=== PATIENT | female | born 1955 | race Caucasian/White ===

== ENCOUNTER → 2020-05-22 12:25 | Outpatient (CLI) | payer OTHER, SELFPAY ==
--- NOTE | ~2020-05-22 | MM_ITS ---
EXAMINATION: MM screening gideon BI w yolie HISTORY: Screening mammogram TECHNIQUE: Craniocaudal and mediolateral oblique 3-D tomosynthesis images were obtained and synthetic 2-D images were generated. CAD analysis was submitted and interpreted. COMPARISON: 04/10/2019, 02/14/2018, 12/17/2016 bilateral digital screening mammogram examinations BREAST PARENCHYMAL COMPOSITION: There are scattered areas of fibroglandular density. FINDINGS: There is no evidence of suspicious mass, calcification, or architectural distortion to sugg est malignancy in either breast. There has been no suspicious interval change. IMPRESSION: 1. No mammographic evidence of malignancy. 2. Recommend routine screening mammography in one year. BI-RADS Category 1: Negative Reviewed, dictated and finalized at location A. LE PACKER
== END ==
PROVIDERS: PCP Family Medicine; Visit Provider Obstetrics & Gynecology
DX: Z12.31 Encounter for screening mammogram for malignant neoplasm of breast (principal)
CPT/HCPCS: 77063; 77067

== ENCOUNTER 2020-06-28 17:41 | Outpatient (CLI) | payer OTHER, SELFPAY | END 2020-06-28 17:42 | disposition home or self-care (01) | LOC: ANHCOVIDVC 17:41 | PROVIDERS: PCP Family Medicine | DX: Z23 Encounter for immunization (principal) | CPT/HCPCS: 0001A; 91300 ==

== ENCOUNTER 2020-07-19 17:42 | Outpatient (CLI) | payer OTHER, SELFPAY | END 2020-07-19 17:43 | disposition home or self-care (01) | LOC: ANHCOVIDVC 17:42 | PROVIDERS: PCP Family Medicine | DX: Z23 Encounter for immunization (principal) | CPT/HCPCS: 0002A; 91300 ==

== ENCOUNTER 2021-06-20 02:11 | Day surgery (SDC) | payer OTHER, SELFPAY ==
[2021-06-09 09:35] VITALS: BMI 24.9
--- NOTE | 2021-06-19 13:26 | WPDANESEPP ---
Anes - Eval Pre Procedure Procedure: Operation Date: 06/20/21 08:00 Proposed Procedures p Screening Colonoscopy - Phuc Kramer MD Date/Time: 06/19/21 13:26 Pre Op Diagnosis: neoplasm screening Patient Data Age: 66 Gender: F Height: 1.65 m Weight: 68 kg Allergies Allergy/AdvReac Type Severity Reaction Status Date / Time No Known Drug Allergies Allergy Unknown unknown Verified 06/09/21 09:32 Home Medications Medication Instructions Recorded Confirmed Type Ca 600 mg-D3 20 mcg-mag oxide 50 tablet PO 02/21/19 03/19/20 History jp-Ym-siudyk-manganese-boron tablet multivit with 1 tablet PO DAILY 02/21/19 03/19/20 History cbekcqdy-jnba-CE-lutein 8 mg iron-400 mcg-300 mcg tablet vit C,E,zinc,copper-lnine9l 250 1 cap PO DAILY 02/21/19 03/19/20 History mg-lutein 5 mg-zeaxanthin 1 mg capsule apple cider vinegar 300 mg tablet mg PO 03/25/21 History aspirin 81 mg tablet,delayed 81 mg PO DAILY 03/25/21 History release cinnamon bark 500 mg capsule 500 mg PO DAILY 03/25/21 History nuriva .ROUTE 03/25/21 History Patient hx anesthesia problems: none Family hx anesthesia problems: none Results Review: All pre-operative results and documents have been reviewed as part of the pre-operative evaluation. [facility] Past Medical History Medical History (Updated 06/19/21 @ 13:26 by Pradip Brumfield DO) Anxiety H/O vaginal delivery Rheumatic fever Screening breast examination Surgical History Surgical History History of bilateral tubal ligation History of breast surgery Previous section Family History Family History Father Family history of lung cancer Patient's father is Other Diabetes mellitus Family history of development disorder Family history of malignant neoplasm of breast No family history of cardiovascular disease No family history of hypertension No family history of malignant neoplasm Social History Social History Smoking status: Never smoker Second hand tobacco smoke exposure: No Alcohol intake: current Alcohol use details: rarely Substance use: never Substance use type: does not use Spiritual care concerns: No Exam Day of Procedure 06/19/21 13:26
[2021-06-20] MEDS: LACTATED RINGERS 1,000 ML 150 ML IV CONT (08:25)
[2021-06-20 08:34] VITALS: BP 130/75; PULSE 72; RESP 18; TEMP 36.4; O2SAT 97; BMI 25.3
--- NOTE | 2021-06-20 08:34 | WPDANESEFPP ---
Anes - Eval Final PreProcedure Day of Procedure 06/20/21 08:34 Patient weight: normal Heart: regular rate and rhythm Lungs: clear to auscultation Airway: Mallampati scale Neurological: alert and oriented Last oral intake: >/= 8 hours ASA classification: II Emergent: no Anesthetic plan: proceed Anesthesia type and monitoring: general GIVS and standard monitoring Results Review: All pre-operative results and documents have been reviewed as part of the pre-operative evaluation. Informed Consent: The patient's anesthetic plan and its attendant risks and benefits were discussed with the patient/family/POA. Questions were solicited and answers provided to the satisfaction of the patient/family/POA.
--- NOTE | 2021-06-20 08:36 | PM.HPGS ---
History of Present Illness History of Present Illness Consent: Risks, benefits, and alternatives have been discussed and questions answered. Patient agrees to proceed with procedure. Chief complaint: neoplasm screening Narrative: Yessy Waddell is a 66 year old female here for screening colonoscopy, last one 2009. Earlier today she had vasovagal episode with syncope due to dehydration and treated in ER, now she is ok Review of Systems Constitutional: Constitutional: Denies headache(s) and Denies weakness Eyes: Eyes: Denies blurry vision ENT: Reports Normal hearing present, Denies headache(s) and Denies neck pain Cardiovascular: Cardiovascular: Denies chest pain and Denies dyspnea Respiratory: Respiratory: Denies dyspnea Gastrointestinal: Gastrointestinal: Reports no additional gastrointestinal complaints Genitourinary: Genitourinary: Denies dysuria Musculoskeletal: Musculoskeletal: Denies neck pain Integumentary/Breasts: Skin/Breast: Denies dry skin Neurologic: Reports Normal hearing present, Denies headache(s) and Denies weakness Psychiatric: Psychiatric: Denies anxiety Endocrine: Endocrine: Denies change in body appearance Hematologic/Lymphatic: Hematologic/Lymphatic: Denies easy bleeding Allergic/Immunologic: Allergic/Immunologic: Denies urticaria PMFSH Past Medical History Medical History (Updated 06/20/21 @ 08:37 by Phuc Kramer MD) Anxiety Colon cancer screening H/O vaginal delivery Rheumatic fever Screening breast examination Surgical History Surgical History History of bilateral tubal ligation History of breast surgery Previous section Family History Family History Father Family history of lung cancer Patient's father is Other Diabetes mellitus Family history of development disorder Family history of malignant neoplasm of breast No family history of cardiovascular disease No family history of hypertension No family history of malignant neoplasm Social History Social History Smoking status: Never smoker Second hand tobacco smoke exposure: No Alcohol intake: current Alcohol use details: rarely Substance use: never Substance use type: does not use Spiritual care concerns: No Meds Home Medications and Allergies Home Medications Medication Instructions Recorded Confirmed Type Ca 600 mg-D3 20 mcg-mag oxide 50 tablet PO 02/21/19 03/19/20 History yq-Fr-edbhdb-manganese-boron tablet multivit with 1 tablet PO DAILY 02/21/19 03/19/20 History bhobyzyz-muki-XO-lutein 8 mg iron-400 mcg-300 mcg tablet vit C,E,zinc,copper-plekm7e 250 1 cap PO DAILY 02/21/19 03/19/20 History mg-lutein 5 mg-zeaxanthin 1 mg capsule apple cider vinegar 300 mg tablet mg PO 03/25/21 History aspirin 81 mg tablet,delayed 81 mg PO DAILY 03/25/21 History release cinnamon bark 500 mg capsule 500 mg PO DAILY 03/25/21 History nuriva .ROUTE 03/25/21 History Allergies Allergy/AdvReac Type Severity Reaction Status Date / Time No Known Drug Allergies Allergy Unknown unknown Verified 06/20/21 08:26 Exam Const: General: comfortable and no acute distress HENMT: General nose exam: Normal nares present Eyes: General: appearance normal, both eyes and all related structures Neck: Neck: no JVD Resp: Auscultation: clear to auscultation bilaterally Cardio: Rate: regular rate Rhythm: regular rhythm GI: Inspection: non-distended GI Palp: Yes Soft to palpation Skin: General skin exam: normal color Neuro: General: gait normal Speech: normal speech Extrem: General: normal to inspection Psych: Mental Status: mental status grossly normal Assessment and Plan Assessment and plan (1) Colon cancer screening: Code(s): Z12.11 - Encounter for
[2021-06-20 09:50] VITALS: BP 106/75; PULSE 64; RESP 15; O2SAT 98
[2021-06-20 10:00] VITALS: BP 103/72; PULSE 67; RESP 17; O2SAT 100
[2021-06-20 10:10] VITALS: BP 110/78; PULSE 71; RESP 17; O2SAT 95
== END 2021-06-20 10:42 | disposition home or self-care (01) ==
PROVIDERS: PCP Family Medicine; Visit Provider Internal Medicine Gastroenterology
PROC: 0DJD8ZZ Inspection of Lower Intestinal Tract, Via Natural or Artificial Opening Endoscopic (ICD-10-PCS; CPT 45378; principal; 2021-06-20 08:00)
DX: Z12.11 Encounter for screening for malignant neoplasm of colon (principal); D12.0 Benign neoplasm of cecum; D12.3 Benign neoplasm of transverse colon; K63.5 Polyp of colon; K64.8 Other hemorrhoids; K57.30 Diverticulosis of large intestine without perforation or abscess without bleeding; K64.4 Residual hemorrhoidal skin tags; F41.9 Anxiety disorder, unspecified; Z79.82 Long term (current) use of aspirin
CPT/HCPCS: 45385; 45381; 36415; 80048; 85025; 88305; 93005; 96361; 96374; 99284; J2405; J2704; J7030; J7120

== ENCOUNTER 2021-06-20 05:38 | Emergency (ER) | payer OTHER, SELFPAY ==
[2021-06-20] VITALS (12 sets, daily range): BP systolic 103–132; BP diastolic 63–91; PULSE 60–80; RESP 13–18; TEMP 36.2; O2SAT 96–100
--- NOTE | 2021-06-20 05:43 | ECG_ITS ---
Measurements Intervals [place] Rate: 68 P: 51 NH: 144 QRS: 43 QRSD: 101 T: 14 QT: 375 QTc: 401 Interpretive Statements SINUS RHYTHM NONSPECIFIC T-WAVE ABNORMALITY ABNORMAL ECG NO PREVIOUS ECG AVAILABLE FOR COMPARISON Electronically Signed On 06-20-2021 10:33:49 TOP PRECIPITATOR OPERATOR HELPER by Jimi Lynn M.D.
[2021-06-20] MEDS: SODIUM CHLORIDE 0.9% IV 1,000 ML 999 ML IV CONT ×2 (05:55→07:08)
[2021-06-20] MEDS: ONDANSETRON INJ 4 MG/2 ML VIAL IV PUSH (05:55)
[2021-06-20 06:06] LABS: Basophils Percent Auto 0.3 % (0.2-1.2); Eosinophils Absolute Auto 0.4 K/mm3 (0-0.3); Eosinophils Percent Auto 4.1 % (0-4.4); Hematocrit 39.5 % (37.0-47.0); Hemoglobin 13.4 g/dL (12.0-15.0); Immature Granulocyte Absolute 0.04 K/mm3 (0.00-0.031); Immature Granulocyte Percent A 0.5 % (0-0.5); Lymphocytes Absolute Auto 2.68 K/mm3 (0.9-3.2); Lymphocytes Percent Auto 30.6 % (18.3-44.2); Mean Corpuscular HGB Conc 33.9 g/dl (32-36); Mean Corpuscular Hemoglobin 29.4 pg (26-34); Mean Corpuscular Volume 86.6 fl (80-100); Mean Platelet Volume 8.5 fl (7.4-10.4); Monocytes Absolute Auto 0.4 K/mm3 (0.1-0.6); Monocytes Percent Auto 4.7 % (2.6-8.5); Neutrophils Absolute Auto 5.3 K/mm3 (1.3-6.7); Neutrophils Percent Auto 59.8 % (45.5-73.1); Platelet Count Result 276 k/mm3 (150-375); Red Blood Count 4.56 M/mm3 (4.2-5.4); Red Cell Distribution Width 12.9 % (11.5-14.5); White Blood Count 8.8 K/mm3 (4.5-10.0)
[2021-06-20 06:15] LABS: Anion Gap 9 mmol/L (8-16); Blood Urea Nitrogen 8 mg/dL (7-17); Calcium 9.2 mg/dL (8.4-10.2); Carbon Dioxide 23 mmol/L (22-30); Chloride 103 mmol/L (98-107); Estimated CRCL calculation 56 ml/min; Estimated Glomerular Filt Rate > 60; Glucose 175 mg/dL (65-110); Potassium 3.6 mmol/L (3.4-5.0); Sodium 135 mmol/L (137-145)
--- NOTE | 2021-06-20 06:37 | ED.SYNCOPE ---
HPI - Syncope General Chief Complaint: Syncope <Bob Antonio MD - Last Filed: 06/20/21 07:09> Stated Complaint: syncope <Bob Antonio MD - Last Filed: 06/20/21 07:09> Time Seen by Provider: 06/20/21 05:47 <Bob Antonio MD - Last Filed: 06/20/21 07:09> History of Present Illness HPI narrative: Patient is a 66-year-old female who presents ER with syncope. Patient took some magnesium citrate at midnight. She is scheduled to have a colonoscopy today with GI. Apparently after taking the laxative patient started having vomiting and diarrhea and they are occurring at the same time. She was sitting on the toilet when her heard her hit her head on the wall. Patient had been sitting on the toilet flopped backwards hitting her head. Patient has no headache at this time. She still feels quite nauseous and lightheaded with movements. She takes no blood thinners. No discernible injury to the head. Denies blood in vomit or stool. <Bob Antonio MD - Last Filed: 06/20/21 07:09> Related Data Home Medications: Home Medications Medication Instructions Recorded Confirmed Ca 600 mg-D3 20 mcg-mag oxide 50 tablet PO 02/21/19 03/19/20 ov-Hi-mvtwlb-manganese-boron tablet multivit with 1 tablet PO DAILY 02/21/19 03/19/20 nywvuxtl-lunm-BB-lutein 8 mg iron-400 mcg-300 mcg tablet vit C,E,zinc,copper-jjdes5s 250 1 cap PO DAILY 02/21/19 03/19/20 mg-lutein 5 mg-zeaxanthin 1 mg capsule apple cider vinegar 300 mg tablet mg PO 03/25/21 aspirin 81 mg tablet,delayed 81 mg PO DAILY 03/25/21 release cinnamon bark 500 mg capsule 500 mg PO DAILY 03/25/21 nuriva .ROUTE 03/25/21 <Bob Antonio MD - Last Filed: 06/20/21 07:09> Allergies/Adverse Reactions: Allergies Allergy/AdvReac Type Severity Reaction Status Date / Time No Known Drug Allergies Allergy Unknown unknown Verified 06/20/21 08:26 <Bob Antonio MD - Last Filed: 06/20/21 07:09> Review of Systems Review of Systems: All systems reviewed & are unremarkable except as noted in HPI and below <Bob Antonio MD - Last Filed: 06/20/21 07:09> Constitutional: Constitutional: Denies chills, Denies fever(s) and Denies weakness <Bob Antonio MD - Last Filed: 06/20/21 07:09> ENT: Denies nasal congestion and Denies sore throat <Bob Antonio MD - Last Filed: 06/20/21 07:09> Cardiovascular: Cardiovascular: Denies chest pain, Denies rapid heart rate and Denies radiating jaw, neck or arm pain <Bob Antonio MD - Last Filed: 06/20/21 07:09> Respiratory: Respiratory: Denies cough and Denies dyspnea <Bob Antonio MD - Last Filed: 06/20/21 07:09> Gastrointestinal: Gastrointestinal: Denies abdominal pain, Reports diarrhea, Reports nausea and Reports vomiting <Bob Antonio MD - Last Filed: 06/20/21 07:09> Neurologic: Reports syncope, Denies focal weakness and Denies numbness <Bob Antonio MD - Last Filed: 06/20/21 07:09> PMF Past Medical History Medical History: Medical History (Updated 06/20/21 @ 08:37 by Phuc Kramer MD) Anxiety Colon cancer screening H/O vaginal delivery Rheumatic fever Screening breast examination <Bob Antonio MD - Last Filed: 06/20/21 07:09> Surgical History Surgical History: Surgical History History of bilateral tubal ligation History of breast surgery Previous section <Bob Antonio MD - Last Filed: 06/20/21 07:09> Family History Family History: Family History Father Family history of lung cancer Patient's father is Other Diabetes mellitus Family history of development disorder Family history of malignant neoplasm of breast No family history of cardiovascular disease No family history of hypertension No family history of malignant neoplasm <A
--- NOTE | 2021-06-20 07:06 | PC.NURSE ---
Per EDP at bedside, pt is still orthostatic - pt denies any dizziness w/ drop in pressure. EDP Dr Antonio discussed POC w/ pt - ordered another L of NS/fluids prior to ED exit. Following fluids admin, pt is to go directly to OR for scheduled colonoscopy. Pt agrees w/ plan.
--- NOTE | 2021-06-20 08:15 | PC.NURSE ---
pt ambulatory to bathroom. denies dizziness. c/o some weakness. pt to go to gi lab as originally scheduled.
== END 2021-06-20 08:32 | disposition home or self-care (01) ==
PROVIDERS: Emergency Provider Emergency Medicine; PCP Family Medicine
DX: R55 Syncope and collapse (principal); Z79.82 Long term (current) use of aspirin; R94.31 Abnormal electrocardiogram [ECG] [EKG]
CPT/HCPCS: 36415; 80048; 85025; 93005; 96361; 96374; 99284; J2405; J7030

== ENCOUNTER → 2021-06-24 17:23 | Outpatient (CLI) | payer OTHER, SELFPAY ==
--- NOTE | ~2021-06-24 | MM_ITS ---
EXAMINATION: MM screening gideon BI w yolie HISTORY: Screening TECHNIQUE: Craniocaudal and mediolateral oblique 3-D tomosynthesis images were obtained and synthetic 2-D images were generated. CAD analysis was submitted and interpreted. COMPARISON: Comparison to multiple prior studies sequentially, with oldest reviewed study dated 08/2015. BREAST PARENCHYMAL COMPOSITION: There are scattered areas of fibroglandular density. FINDINGS: There is no evidence of suspicious mass, calcification, or architectural distortion to sugg est malignancy in either breast. There has been no suspicious interval change. IMPRESSION: 1. No mammographic evidence of malignancy. 2. Recommend routine screening mammography in one year. BI-RADS Category 1: Negative Reviewed, dictated and finalized at location A. CLERK
--- NOTE | ~2021-06-24 | DEXA_ITS ---
Bone Density Report Name: SHELDON PASCAL Age: 66 Sex: Female Ethnicity: White Date of : 1955 Indication: osteopenia; parental hip fracture; postmenopausal Referring Provider: KATARINA JACKMAN Study: Bone densitometry was performed. Exam Date: June 24, 2021 Accession number: [id number] Bone Density: Region BMD T-score Z-score Classification AP Spine (L1-L4) 0.867 -1.6 0.1 Osteopenia Femoral Neck (Left) 0.566 -2.5 -1.1 Osteoporosis Total Hip (Left) 0.796 -1.2 0.0 Osteopenia Femoral Neck (Right) 0.627 -2.0 -0.5 Osteopenia Total Hip (Right) 0.847 -0.8 0.4 Normal Total Hip Mean 0.822 -1.0 0.2 Normal World Health Organization criteria for BMD impression classify patients as: Normal (T-score at or above -1.0), Osteopenia (T-score between -1.0 and -2.5), or Osteoporosis (T-score at or below -2.5). 10-year Fracture Risk: FRAX not reported because: Some T-score for Spine Total or Hip Total or Femoral Neck at or below -2.5 Previous Exams: Region Exam Age BMD T-score BMD Change BMD Change Date g/cm2 vs Baseline vs Previous AP Spine(L1-L4) 06/24/2021 66 0.867 -1.6 -0.060* -0.003 04/10/2019 63 0.870 -1.6 -0.057* -0.035 09/07/2014 59 0.905 -1.3 -0.022 0.020 04/14/2012 56 0.885 -1.5 -0.042* -0.024* 03/28/2010 54 0.909 -1.3 -0.018 -0.018 03/30/2008 52 0.927 -1.1 Total Hip(Left) 06/24/2021 66 0.796 -1.2 -0.023 0.015 04/10/2019 63 0.781 -1.3 -0.038* -0.053 09/07/2014 59 0.834 -0.9 0.015 0.015 04/14/2012 56 0.819 -1.0 -0.001 -0.027 03/28/2010 54 0.846 -0.8 0.026 0.026 03/30/2008 52 0.819 -1.0 Total Hip(Right) 06/24/2021 66 0.847 -0.8 -0.030* -0.006 04/10/2019 63 0.852 -0.7 -0.025 -0.052 09/07/2014 59 0.905 -0.3 0.028 0.030 04/14/2012 56 0.875 -0.6 -0.003 -0.004 03/28/2010 54 0.879 -0.5 0.002 0.002 03/30/2008 52 0.877 -0.5 *Denotes significance at 95% confidence level, LSC for AP Spine = 0.022 g/cm2, LSC for Total Hip = 0.027 g/cm2 Clinical Information Provided by Patient: Parent has had a hip fracture Has used the following medications: Vitamin D, Calcium, MULT VIT Patient maximum height was 65.0 Menopause Age: 52 No regular weight bearing exercise Does not reg
== END ==
PROVIDERS: PCP Obstetrics & Gynecology; Visit Provider Obstetrics & Gynecology
DX: Z12.31 Encounter for screening mammogram for malignant neoplasm of breast (principal); Z78.0 Asymptomatic menopausal state; M85.89 Other specified disorders of bone density and structure, multiple sites; M81.0 Age-related osteoporosis without current pathological fracture
CPT/HCPCS: 77063; 77067; 77080

== ENCOUNTER 2022-05-13 12:32 | Outpatient (CLI) | payer OTHER, SELFPAY ==
[2022-05-13 18:47] LABS: Kit Draw Collected
== END 2022-05-13 12:33 | disposition home or self-care (01) ==
LOC: ANHGOSHLAB 12:33
PROVIDERS: PCP Family Medicine; Visit Provider Family Medicine
DX: M81.0 Age-related osteoporosis without current pathological fracture (principal); Z78.0 Asymptomatic menopausal state
CPT/HCPCS: 36415

== ENCOUNTER → 2022-09-12 09:31 | Outpatient (CLI) | payer OTHER, SELFPAY ==
--- NOTE | ~2022-09-12 | MM_ITS ---
EXAMINATION: MM screening gideon BI w yolie HISTORY: Screening mammogram TECHNIQUE: Craniocaudal and mediolateral oblique 3-D tomosynthesis images were obtained and synthetic 2-D images were generated. CAD analysis was submitted and interpreted. COMPARISON: 06/24/2021, 05/22/2020, 04/10/2019 BREAST PARENCHYMAL COMPOSITION:There are scattered areas of fibroglandular density. FINDINGS: No suspicious mass, calcification, or architectural distortion are identified in either fabby ast to suggest malignancy. There has been no suspicious interval change. IMPRESSION: No mammographic evidence of malignancy. Recommend routine screening mammography in one year. BI-RADS Category 1: Negative Reviewed, dictated and finalized at location .
== END ==
PROVIDERS: PCP Family Medicine; Visit Provider Obstetrics & Gynecology
DX: Z12.31 Encounter for screening mammogram for malignant neoplasm of breast (principal)
CPT/HCPCS: 77063; 77067

== ENCOUNTER 2022-10-26 06:13 | Day surgery (SDC) | payer OTHER, SELFPAY ==
[2022-10-07 07:23] VITALS: BMI 24.9
--- NOTE | 2022-10-23 12:46 | WPDANESEPPF ---
Anes - Initial Pre Proc Eval Procedure: Operation Date: 10/26/22 08:00 Proposed Procedures p Screening Colonoscopy - Phuc Kramer MD Date/Time: 10/23/22 12:46 Surgeon: Phuc Kramer MD Pre Op Diagnosis: History of Colon Polyps Patient Data Age: 67 Gender: F Height: 1.65 m Weight: 68 kg Allergies Allergy/AdvReac Type Severity Reaction Status Date / Time No Known Drug Allergies Allergy Unknown unknown Verified 10/26/22 06:35 Home Medications Medication Instructions Recorded Confirmed Type Ca 600 mg-D3 20 mcg-mag oxide 50 1,200 tablet PO DAILY 02/21/19 10/26/22 History kh-Ia-offrgk-manganese-boron tablet (Calcium 600-D3 Plus (mag-zinc)) multivit with 1 tablet PO DAILY 02/21/19 10/26/22 History fpbupbom-ivpf-SH-lutein 8 mg iron-400 mcg-300 mcg tablet (Centrum Silver Women) vit C,E,zinc,copper-citvq8l 250 1 cap PO DAILY 02/21/19 10/26/22 History mg-lutein 5 mg-zeaxanthin 1 mg capsule (Ocuvite Adult 50 Plus) apple cider vinegar 300 mg tablet 450 mg PO DAILY 03/25/21 10/26/22 History cinnamon bark 500 mg capsule 2,000 mg PO DAILY 03/25/21 10/26/22 History (Cinnamon) B6 0.85 mg-folic 200 1 tablet PO DAILY 10/06/22 10/26/22 History vys-S00-vixibcH18-zjlfhj-ghdccvvncjsl oral chewable tablet (Neuriva Plus) Patient hx anesthesia problems: none Family hx anesthesia problems: none Results Review: All pre-operative results and documents have been reviewed as part of the pre-operative evaluation. [facility] Past Medical History Medical History Anxiety Colon cancer screening H/O vaginal delivery Rheumatic fever Screening breast examination Surgical History Surgical History History of bilateral tubal ligation History of breast surgery Previous section Family History Family History Father Family history of lung cancer Patient's father is Other Diabetes mellitus Family history of development disorder Family history of malignant neoplasm of breast No family history of cardiovascular disease No family history of hypertension No family history of malignant neoplasm Social History Social History (Updated 05/13/22 @ 11:23 by Deidra Munguia MA) Smoking status: Never smoker Second hand tobacco smoke exposure: No Alcohol intake: never Alcohol use details: rarely Substance use: never Substance use type: does not use Lack of Transportation: No Lack of Food: Never True Current Housing: I Have Housing Concerned About Future Housing: No Difficulty Paying Gas/Electric Bills: No Difficulty Paying for Meds: No Currently Unemployed: No Education: High School Diploma/GED Difficulty w/ Childcare or Family Care: No Living arrangements: with family Spiritual care concerns: No Anes - Eval Final PreProcedure Day of Procedure 10/23/22 12:46 Patient weight: normal Heart: regular rate and rhythm Lungs: clear to auscultation and normal air movement Airway: Mallampati scale class II Neurological: alert and oriented Last oral intake: >/= 8 hours ASA classification: II Emergent: no Anesthetic plan: proceed Anesthesia type and monitoring: general GIVS and standard monitoring Results Review: All pre-operative results and documents have been reviewed as part of the pre-operative evaluation. Informed Consent: The patient's anesthetic plan and its attendant risks and benefits were discussed with the patient/family/POA. Questions were solicited and answers provided to the satisfaction of the patient/family/POA.
[2022-10-26 06:41] VITALS: BP 157/91; PULSE 79; RESP 18; TEMP 36.5; O2SAT 98
[2022-10-26] MEDS: LACTATED RINGERS 1,000 ML 150 ML IV CONT (06:49)
--- NOTE | 2022-10-26 08:01 | PM.HPGS ---
History of Present Illness History of Present Illness Consent: Risks, benefits, and alternatives have been discussed and questions answered. Patient agrees to proceed with procedure. Chief complaint: History of Colon Polyps Narrative: Yessy Waddell is a 67 year old female with large polyps removed 1 year ago Review of Systems Constitutional: Constitutional: Denies headache(s) and Denies weakness Eyes: Eyes: Denies blurry vision ENT: Reports Normal hearing present, Denies headache(s) and Denies neck pain Cardiovascular: Cardiovascular: Denies chest pain and Denies dyspnea Respiratory: Respiratory: Denies dyspnea Gastrointestinal: Gastrointestinal: Reports no additional gastrointestinal complaints Genitourinary: Genitourinary: Denies dysuria Musculoskeletal: Musculoskeletal: Denies neck pain Integumentary/Breasts: Skin/Breast: Denies dry skin Neurologic: Reports Normal hearing present, Denies headache(s) and Denies weakness Psychiatric: Psychiatric: Denies anxiety Endocrine: Endocrine: Denies change in body appearance Hematologic/Lymphatic: Hematologic/Lymphatic: Denies easy bleeding Allergic/Immunologic: Allergic/Immunologic: Denies urticaria PMFSH Past Medical History Medical History Anxiety Colon cancer screening H/O vaginal delivery Rheumatic fever Screening breast examination Surgical History Surgical History History of bilateral tubal ligation History of breast surgery Previous section Family History Family History Father Family history of lung cancer Patient's father is Other Diabetes mellitus Family history of development disorder Family history of malignant neoplasm of breast No family history of cardiovascular disease No family history of hypertension No family history of malignant neoplasm Social History Social History (Updated 05/13/22 @ 11:23 by Deidra Munguia MA) Smoking status: Never smoker Second hand tobacco smoke exposure: No Alcohol intake: never Alcohol use details: rarely Substance use: never Substance use type: does not use Lack of Transportation: No Lack of Food: Never True Current Housing: I Have Housing Concerned About Future Housing: No Difficulty Paying Gas/Electric Bills: No Difficulty Paying for Meds: No Currently Unemployed: No Education: High School Diploma/GED Difficulty w/ Childcare or Family Care: No Living arrangements: with family Spiritual care concerns: No Meds Home Medications and Allergies Home Medications Medication Instructions Recorded Confirmed Type Ca 600 mg-D3 20 mcg-mag oxide 50 1,200 tablet PO DAILY 02/21/19 10/26/22 History gl-Gf-kibnqd-manganese-boron tablet (Calcium 600-D3 Plus (mag-zinc)) multivit with 1 tablet PO DAILY 02/21/19 10/26/22 History dysuljln-axci-II-lutein 8 mg iron-400 mcg-300 mcg tablet (Centrum Silver Women) vit C,E,zinc,copper-dhnjp2n 250 1 cap PO DAILY 02/21/19 10/26/22 History mg-lutein 5 mg-zeaxanthin 1 mg capsule (Ocuvite Adult 50 Plus) apple cider vinegar 300 mg tablet 450 mg PO DAILY 03/25/21 10/26/22 History cinnamon bark 500 mg capsule 2,000 mg PO DAILY 03/25/21 10/26/22 History (Cinnamon) B6 0.85 mg-folic 200 1 tablet PO DAILY 10/06/22 10/26/22 History mno-H85-nyrozbE99-svxsms-idjfrswvnfyc oral chewable tablet (Neuriva Plus) Allergies Allergy/AdvReac Type Severity Reaction Status Date / Time No Known Drug Allergies Allergy Unknown unknown Verified 10/26/22 06:35 Vital Signs Vital Signs - 24 hr 10/26/22 06:41 Temperature 97.7 F Pulse Rate 79 Respiratory Rate 18 Blood Pressure 157/91 H Pulse Oximetry 98 Oxygen Delivery Room Air Exam Const: General: comfortable and no acute distress HENMT: Face/Nos
[2022-10-26 08:27] VITALS: BP 101/70; PULSE 65; RESP 16; O2SAT 100
[2022-10-26 08:37] VITALS: BP 123/85; PULSE 62; RESP 16; O2SAT 100
[2022-10-26 08:47] VITALS: BP 125/81; PULSE 59; RESP 16; O2SAT 100
--- NOTE | 2022-10-26 11:11 | WPDANESPN ---
Anes - Prog Note Post-Op Date/Time: 10/26/22 11:11 Cardiovascular status: normal Respiratory status: normal Airway patency: baseline Mental status: baseline Post-Op hydration status: normal Vital Signs: Last Vital Signs Temp 36.5 C 10/26/22 06:41 Pulse 59 L 10/26/22 08:47 Resp 16 10/26/22 08:47 BP 125/81 10/26/22 08:47 Pulse Ox 100 10/26/22 08:47 O2 Del Method Room Air 10/26/22 08:47 Pain Score (VAS): 0 I/O: Intake & Output 10/25/22 10/26/22 10/26/22 23:59 07:59 15:59 Intake Total 900 Balance 900 Post-procedural complaints: none Patient Feedback: Patient satisfied with anesthetic care. Other Findings: Patient vital signs back to baseline. Patient denies nausea and vomiting. Patient's pain under control. Patient OK for discharge.
== END 2022-10-26 09:00 | disposition home or self-care (01) ==
PROVIDERS: PCP Family Medicine; Visit Provider Internal Medicine Gastroenterology
PROC: 0DJD8ZZ Inspection of Lower Intestinal Tract, Via Natural or Artificial Opening Endoscopic (ICD-10-PCS; CPT 45378; principal; 2022-10-26 08:00)
DX: Z86.010 Personal history of colon polyps (principal)
CPT/HCPCS: 45385

== ENCOUNTER 2022-10-26 09:00 | Outpatient (NON) | payer OTHER, SELFPAY | END 2022-10-26 09:01 | disposition home or self-care (01) | LOC: ANHLAB 10-27 08:39 | PROVIDERS: PCP Family Medicine; Visit Provider Internal Medicine Gastroenterology | DX: D12.0 Benign neoplasm of cecum (principal) | CPT/HCPCS: 88305 ==

== ENCOUNTER 2022-11-03 11:11 | Outpatient (CLI) | payer OTHER, SELFPAY ==
[2022-11-03 20:27] LABS: Basophils Percent Auto 0.7 % (0.2-1.2); Eosinophils Absolute Auto 0.1 K/mm3 (0-0.3); Eosinophils Percent Auto 2.4 % (0-4.4); Hemoglobin 13.3 g/dL (12.0-15.0); Immature Granulocyte Absolute 0.01 K/mm3 (0.00-0.031); Immature Granulocyte Percent A 0.2 % (0-0.5); Lymphocytes Absolute Auto 1.91 K/mm3 (0.9-3.2); Lymphocytes Percent Auto 33.1 % (18.3-44.2); Mean Corpuscular HGB Conc 32.4 g/dl (32-36); Mean Corpuscular Hemoglobin 28.7 pg (26-34); Mean Corpuscular Volume 88.6 fl (80-100); Mean Platelet Volume 9.2 fl (7.4-10.4); Monocytes Absolute Auto 0.4 K/mm3 (0.1-0.6); Monocytes Percent Auto 6.2 % (2.6-8.5); Neutrophils Absolute Auto 3.3 K/mm3 (1.3-6.7); Neutrophils Percent Auto 57.4 % (45.5-73.1); Platelet Count Result 265 k/mm3 (150-375); Red Blood Count 4.63 M/mm3 (4.2-5.4); Red Cell Distribution Width 12.8 % (11.5-14.5); White Blood Count 5.8 K/mm3 (4.5-10.0)
[2022-11-03 21:01] LABS: Hepatitis C Virus Antibody Negative (Negative)
[2022-11-03 21:18] LABS: Alanine Aminotransferase 22 U/L (6-35); Albumin Level 4.4 g/dL (3.5-5.1); Alkaline Phosphatase 53 U/L (38-126); Anion Gap 5 mmol/L (8-16); Aspartate Amino Transferase 34 U/L (14-36); Bilirubin,Total 0.6 mg/dL (0.2-1.3); Blood Urea Nitrogen 13 mg/dL (7-17); Calcium 9.4 mg/dL (8.4-10.2); Carbon Dioxide 31 mmol/L (22-30); Chloride 103 mmol/L (98-107); Cholesterol 265 mg/dL (0-200); Estimated Glomerular Filt Rate > 60; Glucose 93 mg/dL (65-110); HDL Direct 58 mg/dL; Sodium 139 mmol/L (137-145); Triglycerides 136 mg/dL (<150)
[2022-11-03 21:29] LABS: LDL Cholesterol Direct 153 mg/dL
== END 2022-11-03 11:12 | disposition home or self-care (01) ==
LOC: ANHGOSHLAB 11:12
PROVIDERS: PCP Family Medicine; Visit Provider Physician Assistant
DX: M81.0 Age-related osteoporosis without current pathological fracture (principal); E78.2 Mixed hyperlipidemia; Z11.59 Encounter for screening for other viral diseases
CPT/HCPCS: 36415; 80053; 80061; 84443; 85025; 86803

== ENCOUNTER 2023-10-05 12:37 | Outpatient (CLI) | payer OTHER, SELFPAY ==
--- NOTE | ~2023-10-05 | MM_ITS ---
EXAMINATION: MM screening [facility] BI w yolie HISTORY: Screening TECHNIQUE: Craniocaudal and mediolateral oblique 3-D tomosynthesis images were obtained and synthetic 2-D images were generated. CAD analysis was submitted and interpreted. COMPARISON: Comparison to multiple prior studies sequentially, with oldest reviewed study dated 12/17. BREAST PARENCHYMAL COMPOSITION: Not dense: There are scattered areas of fibroglandular density. FINDINGS: There is no evidence of suspicious mass, calcification, or architectural distortion to sugg est malignancy in either breast. There has been no suspicious interval change. IMPRESSION: 1. No mammographic evidence of malignancy. 2. Recommend routine screening mammography in one year. BI-RADS Category 1: Negative Reviewed, dictated and finalized at location B.
== END 2023-10-05 12:38 ==
LOC: MICIMG 12:37
PROVIDERS: PCP Family Medicine; Visit Provider Obstetrics & Gynecology
DX: Z12.31 Encounter for screening mammogram for malignant neoplasm of breast (principal)
CPT/HCPCS: 77063; 77067

== ENCOUNTER 2023-10-13 12:57 | Outpatient (CLI) | payer OTHER, SELFPAY ==
--- NOTE | ~2023-10-13 | DEXA_ITS ---
Bone Density Report Name: SHELDON PASCAL Age: 68 Sex: Female Ethnicity: White Date of : 1955 Indication: postmenopausal; screening for osteoporosis; parental hip fracture; height loss; Referring Provider: KATARINA JACKMAN Study: Bone densitometry was performed. Exam Date: October 13, 2023 Accession number: [id number] Bone Density: Region BMD T-score Z-score Classification AP Spine(L1-L4) 0.885 -1.5 0.4 Osteopenia Femoral Neck (Left) 0.621 -2.1 -0.5 Osteopenia Total Hip (Left) 0.759 -1.5 -0.2 Osteopenia Femoral Neck (Right) 0.664 -1.7 -0.1 Osteopenia Total Hip (Right) 0.799 -1.2 0.1 Osteopenia Total Hip Mean 0.779 -1.4 -0.1 Osteopenia World Health Organization criteria for BMD impression classify patients as: Normal (T-score at or above -1.0), Osteopenia (T-score between -1.0 and -2.5), or Osteoporosis (T-score at or below -2.5). 10-year Fracture Risk(1): Major Osteoporotic Fracture 20% Hip Fracture 2.3% Reported Risk Factors: [place] (), Neck BMD=0.621, BMI=26.6, parental fracture (1) FRAX(R) Version 3.08. Fracture probability calculated for an untreated patient. Fracture probability may be lower if the patient has received treatment. Clinical Information Provided by Patient: Parent has had a hip fracture Has used the following medications: Vitamin D, Calcium Patient maximum height was 65 Menopause Age: 50 Drinks caffeinated beverages Onset of menses at age 15 Number of children 3 Impression: The patient has low bone mass, based on the Left Femoral Neck T-score. The patient has an estimated ten-year risk of hip fracture of 2.3% and an estimated ten-year risk of major fracture of 20%, based on the WHO FRAX algorithm. The patient has risk factors, including: parental hip fracture. Discussion: BONE DENSITY IS LOW AT ONE OR MORE SKELETAL SITES. THE PATIENT'S BMD AND CLINICAL RISK FACTORS CONTRIBUTE TO THIS PATIENT'S INCREASED RISK OF FRACTURE. This patient's lowest T-score is low at one or more skeletal sites. It meets the World Health Organization's (WHO) criteria for ?low bone mass? (T-score between -1.0 and -2.5). The patient's 10-year risk of a major osteoporotic fracture as calculated by FRAX exceeds the threshold where pharmacological therapy is recommended by the National Osteoporosis Foundation (NOF). However, all treatment decisions require clinical judgment and consideration of individual patient factors, including patient preferences, comorbidities, previous drug use, risk factors not captured in the FRAX model (e.g., frailty, falls, vitamin D deficiency, increased bone turnover, interval significant decline in bone density) and possible under or overestimation of fracture risk by FRAX. The patient should follow a healthful lifestyle (good nutrition with wilfredo
== END 2023-10-13 12:58 | disposition home or self-care (01) ==
LOC: ANHIMG 12:59
PROVIDERS: PCP Family Medicine; Visit Provider Obstetrics & Gynecology
DX: M81.0 Age-related osteoporosis without current pathological fracture (principal); M85.89 Other specified disorders of bone density and structure, multiple sites; Z13.820 Encounter for screening for osteoporosis
CPT/HCPCS: 77080

== ENCOUNTER 2023-11-08 09:50 | Outpatient (CLI) | payer OTHER, SELFPAY ==
[2023-11-08 14:47] LABS: Basophils Percent Auto 0.7 % (0.2-1.2); Eosinophils Absolute Auto 0.1 K/mm3 (0-0.3); Eosinophils Percent Auto 2.2 % (0-4.4); Hematocrit 40.9 % (37.0-47.0); Hemoglobin 12.9 g/dL (12.0-15.0); Immature Granulocyte Absolute 0.01 K/mm3 (0.00-0.031); Immature Granulocyte Percent A 0.2 % (0-0.5); Lymphocytes Absolute Auto 2.06 K/mm3 (0.9-3.2); Mean Corpuscular HGB Conc 31.5 g/dl (32-36); Mean Corpuscular Hemoglobin 28.5 pg (26-34); Mean Corpuscular Volume 90.5 fl (80-100); Mean Platelet Volume 9.2 fl (7.4-10.4); Monocytes Absolute Auto 0.4 K/mm3 (0.1-0.6); Monocytes Percent Auto 7.6 % (2.6-8.5); Neutrophils Percent Auto 44.3 % (45.5-73.1); Platelet Count Result 280 k/mm3 (150-375); Red Blood Count 4.52 M/mm3 (4.2-5.4); White Blood Count 4.6 K/mm3 (4.5-10.0)
[2023-11-08 15:28] LABS: Vitamin D 25 Hydroxy 56.6 ng/mL
[2023-11-08 15:51] LABS: Alanine Aminotransferase 19 U/L (6-35); Albumin Level 4.6 g/dL (3.5-5.1); Alkaline Phosphatase 60 U/L (38-126); Anion Gap 9 mmol/L (4-12); Aspartate Amino Transferase 54 U/L (14-36); Bilirubin,Total 0.9 mg/dL (0.2-1.3); Blood Urea Nitrogen 12 mg/dL (7-17); Calcium 9.5 mg/dL (8.4-10.2); Carbon Dioxide 28 mmol/L (22-30); Chloride 103 mmol/L (98-107); Cholesterol 244 mg/dL (0-200); Estimated Glomerular Filt Rate > 60; Glucose 85 mg/dL (65-110); HDL Direct 56 mg/dL; Sodium 140 mmol/L (137-145); Triglycerides 188 mg/dL (<150)
[2023-11-08 16:02] LABS: LDL Cholesterol Direct 132 mg/dL
== END 2023-11-08 09:51 | disposition home or self-care (01) ==
LOC: ANHGOSHLAB 09:51
PROVIDERS: PCP Family Medicine; Visit Provider Family Medicine
DX: Z00.00 Encounter for general adult medical examination without abnormal findings (principal); M81.0 Age-related osteoporosis without current pathological fracture; Z78.0 Asymptomatic menopausal state
CPT/HCPCS: 36415; 80053; 80061; 82306; 85025

== ENCOUNTER 2024-11-21 09:04 | Outpatient (CLI) | payer OTHER, SELFPAY ==
--- NOTE | ~2024-11-21 | CT_ITS ---
CT of the Abdomen and Pelvis: Indication: Hematuria Technique: 2.5 mm axial scans were obtained through the abdomen and pelvis prior to and following in travenous administration of 130 cc of Omnipaque 350. Dose reduction technique was used on this scan b y utilizing automated exposure control and iterative reconstruction technique. The dose-length produc t (DLP) was 797.40 mGy-cm. Findings: Scans through the lung bases are unremarkable. The liver, spleen, pancreas, gallbladder, adrenals and kidneys are within normal limits. No evidence of aortic aneurysm. No lymphadenopathy. No bowel obstruction or bowel wall thickening. There is no evidence to suggest acute appendicitis. Images through the pelvis were performed. Urinary bladder unremarkable. 7.2 cm central uterine fibroi d present with areas of coarse calcification. No ascites. Impression: 7.2 cm uterine fibroid, as above. Reviewed, dictated and finalized at [facility]. Impression: 7.2 cm uterine fibroid, as above.
[2024-11-21 09:35] LABS: Estimated Glomerular Filt Rate 55
== END 2024-11-21 09:05 | disposition home or self-care (01) ==
PROVIDERS: PCP Family Medicine; Visit Provider Urology
DX: D25.9 Leiomyoma of uterus, unspecified (principal)
CPT/HCPCS: 74178; Q9967

== ENCOUNTER 2024-12-21 11:11 | Outpatient (CLI) | payer OTHER, SELFPAY ==
--- NOTE | ~2024-12-21 | MM_ITS ---
EXAMINATION: MM screening [facility] BI w yolie HISTORY: Screening TECHNIQUE: Craniocaudal and mediolateral oblique 3-D tomosynthesis images were obtained and synthetic 2-D images were generated. CAD analysis was submitted and interpreted. COMPARISON: Mammograms from 10/05/2023 and 09/12/2022 BREAST PARENCHYMAL COMPOSITION: There are scattered areas of fibroglandular density. FINDINGS: There is no evidence of suspicious mass, calcification, or architectural distortion to suggest malignancy. There has been no suspicious interval change. IMPRESSION: 1. No mammographic evidence of malignancy. Recommend routine screening mammography in one year. BI-RADS Category 2: Benign finding(s) Reviewed, dictated and finalized at location Q. IMPRESSION: 1. No mammographic evidence of malignancy. Recommend routine screening mammogra phy in one year. BI-RADS Category 2: Benign finding(s)
== END 2024-12-21 11:12 | disposition home or self-care (01) ==
LOC: MICIMG 11:12
PROVIDERS: PCP Family Medicine; Visit Provider Obstetrics & Gynecology
DX: Z12.31 Encounter for screening mammogram for malignant neoplasm of breast (principal)
CPT/HCPCS: 77063; 77067